=== PATIENT | female | born 2005 | race Caucasian/White ===

== ENCOUNTER 2024-11-03 12:05 | Emergency (ER) | payer OTHER, SELFPAY ==
[2024-11-03 12:24] VITALS: BP 110/88; PULSE 102; RESP 16; TEMP 37.1; O2SAT 99
--- NOTE | 2024-11-03 12:45 | ED.URI ---
HPI - URI/Sore Throat General Chief Complaint: Upper Respiratory Infection Stated Complaint: SORE THROAT/FEVER/COUGH/NAUSEA/TIRED Source: patient and RN notes reviewed Mode of arrival: ambulatory Limitations: no limitations History of Present Illness HPI Narrative: [age] Year old female presented for complaint of sore throat, headache, fatigue, body aches, sinus pressure/congestion, cough, fever/chills. onset 2 days.Denies sob, wheezing, n/v/d. MD elicited complaint: cough Related Data Home Medications ?Medication ?Instructions ?Recorded ?Confirmed ?Last Taken ?Type norgestimate 0.18 mg/0.215 mg/0.25 tablet 11/03/24 Unknown History mg-ethinyl estradiol 25 mcg tablet ([facility]) paroxetine HCl 10 mg tablet mg PO 11/03/24 Unknown History Allergies Allergy/AdvReac Type Severity Reaction Status Date / Time No Known Allergies Allergy Verified 11/03/24 12:22 Review of Systems Review of Systems: CONSTITUTIONAL: Endorses malaise, chills, sweats, fever EYES: Denies visual changes, redness, or discharge ENT: Reports rhinorrhea, congestion, sore throat CARDIOVASCULAR: Denies chest pain, palpitations, edema RESPIRATORY: Reports cough, post nasal drainage. Denies dyspnea GASTROINTESTINAL: Denies abdominal pain, nausea, vomiting, diarrhea SKIN: Denies rash or itching MUSCULOSKELETAL: Endorses myalgia Exam Narrative: GENERAL: well-appearing, nontoxic no acute distress. EYES: PERRLA, conjunctivae clear ENT: Mucous membranes moist. TM pearly jarquin with dull light reflex bilaterally; no tragal tenderness. Oropharynx erythematous without lesions or exudate, no drooling, no hoarseness, no trismus, uvula midline. No tripod positioning, muffled voice, soft palate or pharyngeal wall bulging NECK: Supple. No lymphadenopathy CHEST: Clear to auscultation, breath sounds equal. No wheezing, rhonchi, rales, or stridor. No respiratory distress, speaks in full sentences. HEART: Regular rate and rhythm. SKIN: Warm, dry, no rash. NEURO: Alert and oriented x3. PSYCH: Normal mood and affect Course Course Emergency Course: Patient is aware of diagnosis, understands and agrees to treatment plan. Anticipatory guidance given. Patient agrees to follow-up as directed and is aware of reasons to seek care at the emergency department. Portions of this record may have been created with voice recognition software Level of Care: Express Care Visit Vital Signs Vital signs: Vital Signs Temperature 98.7 F 11/03/24 12:24 Pulse Rate 102 H 11/03/24 12:24 Respiratory Rate 16 11/03/24 12:24 Blood Pressure 110/88 11/03/24 12:24 Pulse Oximetry 99 11/03/24 12:24 Temperature 98.7 F 11/03/24 12:24 Pulse Rate 102 H 11/03/24 12:24 Respiratory Rate 16 11/03/24 12:24 Blood Pressure 110/88 11/03/24 12:24 Pulse Oximetry 99 11/03/24 12:24 reviewed MDM - URI/Sore Throat MDM Narrative Medical decision making narrative: POS covid. Discussed physical exam findings. Advised supportive measures and signs/symptoms to go to the ER. Pt is appropriate for outpt treatment and f/u. Differential Diagnosis Differential diagnosis: Likely upper respiratory infection, sinusitis and viral infection Discharge Plan Discharge Clinical Impression: COVID-19 Patient Disposition: Home, Self-Care Condition: Stable Instructions: COVID-19 (Coronavirus Disease 2019) (ED) Additional Instructions: Your rapid COVID test was positive today. The following updated recommendations have been made by the CDC and local Health Departments, regarding COVID-19: - When people get sick with a respiratory virus, they stay home and away from others. - Return to normal activities when, for at least 24 hours, symptoms are improving overall, and if a fever was present, it has been gone without use of a fever-reducing medication. - Once people resume normal activities, they are encouraged to take additional prevention strategies for the next 5 days to curb disease spread, such as taking more steps for suede cleaner air, enhancing hygiene practices, wearing a well-fitting mask, keeping a distance from others, and/or getting tested for respiratory viruses. - Enhanced precautions are especially important to protect those most at risk for severe illness, including those over 65 and people with weakened immune systems. Rest, stay hydrated. Tylenol and ibuprofen every 8 hours as needed Flonase/nasal spray, Zyrtec, cough syrup cold/flu medications for symptoms as needed Follow up with your primary care provider, call to schedule an appointment. Go to the ER for worsening symptoms or concerns. Patient Language: Bel[place]ian Prescriptions: No Action paroxetine HCl 10 mg tablet PO norgestimate-ethinyl estradiol [[facility]] 0.18/0.215/0.25 mg-25 mcg tablet Follow-up/Referrals: Get,Maribel [Other] Stand Alone Forms: Work/School Release IP Time of Disposition: 12:51
[2024-11-03 12:50] LABS: EDCOVIDSCREEN Positive (Negative); EDINFLUASCREEN Negative (Negative); EDINFLUBSCREEN Negative (Negative); EDSTREPNEGPOS1 Negative (Negative)
== END 2024-11-03 12:53 | disposition home or self-care (01) ==
PROVIDERS: Emergency Provider Nurse Practitioner Family
DX: U07.1 COVID-19 (principal)
CPT/HCPCS: 87081; 87426; 87804; 87880; 99203; G0463

== ENCOUNTER 2025-02-05 13:20 | Emergency (ER) | payer OTHER, SELFPAY ==
--- NOTE | ~2025-02-05 | XR_ITS ---
Right wrist Technique: PA, oblique, lateral, and ulnar deviation views were obtained. Clinical History: Pain Findings: No acute fracture or dislocation is seen. Osseous alignment is anatomic. Joint spaces are p reserved. Soft tissues are unremarkable. Impression: Unremarkable right wrist radiographs. Reviewed, dictated and finalized at location . Impression: Unremarkable right wrist radiographs.
[2025-02-05 13:27] VITALS: BP 112/80; PULSE 71; RESP 18; TEMP 36.9; O2SAT 99
--- NOTE | 2025-02-05 13:40 | ED_ITS ---
HPI - Extremity Injury (Upper) General Chief Complaint: Extremity Injury, Upper Stated Complaint: Wrist Pain Time Seen by Provider: 02/05/25 13:30 Source: patient and RN notes reviewed Mode of arrival: ambulatory Limitations: no limitations History of Present Illness HPI narrative: Patient presents today complaining of right wrist pain x3 weeks that has been worsening since onset. Denies any known injury, trauma, numbness or tingling. Pain increases with movement. Currently rates her pain 3/10 and has tried no [id number] interventions prior to arrival. States she works at [employer] and does have some heavy lifting, but denies any specific injuries Related Data Home Medications ?Medication ?Instructions ?Recorded ?Confirmed ?Last Taken ?Type norgestimate 0.18 mg/0.215mg/0.25 tablet 11/03/24 Unknown History mg-ethinyl estradiol 0.025 mg tablet ([facility]) paroxetine HCl 10 mg tablet mg PO 11/03/24 Unknown History Allergies Allergy/AdvReac Type Severity Reaction Status Date / Time No Known Allergies Allergy Verified 11/03/24 12:22 Review of Systems Review of Systems: CONSTITUTIONAL: Denies body aches, fever, chills, or sweats. EYES: Denies visual changes, redness, or discharge. ENT: Denies rhinorrhea, congestion, sore throat, or otalgia. CARDIOVASCULAR: Denies chest pain, palpitations, or edema. RESPIRATORY: Denies cough or dyspnea. GASTROINTESTINAL: Denies abdominal pain, nausea, vomiting, or diarrhea. GENITOURINARY: Denies dysuria or hematuria. SKIN: Denies rash, itching, or wounds. MUSCULOSKELETAL: Right wrist injury NEUROLOGIC: Denies headache, numbness, tingling, or weakness. PSYCH: Denies depression or anxiety. PMFSH Comments At time of signature, I have reviewed and agree with nursing past medical, surgical, social and family history unless otherwise noted. Please see nursing chart for further information. There is no relevant family history pertinent to the presenting complaint Exam Narrative: GENERAL: Well-appearing, well-nourished, and in no acute distress. HEAD: Normocephalic, atraumatic. EYES: EOMI. No redness or drainage. Conjunctivae normal. ENT: Mucous membranes pink and moist. NECK: Normal AROM. CHEST: No respiratory distress. EXTREMITIES: Right wrist: Mild tenderness to the distal ulna area with scant edema. No tenderness to the remainder of the wrist or hand. No ecchymosis, erythema, deformity noted. No snuffbox tenderness. Distal sensation intact. Capillary refill normal. Radial pulse normal. Full passive range of motion noted without noted increased pain. SKIN: Warm, dry, no rash. Capillary refill normal. Normal skin turgor. NEURO: No focal deficits. Alert and oriented x3. Gait steady. PSYCH: Normal affect. No signs of depression or anxiety. Course Course Level of Care: Express Care Visit Vital Signs Vital signs: Vital Signs Temperature 98.5 F 02/05/25 13:27 Pulse Rate 71 02/05/25 13:27 Respiratory Rate 18 02/05/25 13:27 Blood Pressure 112/80 02/05/25 13:27 Pulse Oximetry 99 02/05/25 13:27 Temperature 98.5 F 02/05/25 13:27 Pulse Rate 71 02/05/25 13:27 Respiratory Rate 18 02/05/25 13:27 Blood Pressure 112/80 02/05/25 13:27 Pulse Oximetry 99 02/05/25 13:27 Reviewed MDM - Extremity Injury (Upper) MDM Narrative Medical decision making narrative: X-ray is negative. Symptoms are likely due to overuse injury. Will start patient on Medrol Dosepak. Discussed immobilization with [id number] splint as well as NSAIDs. Also recommend following up in 1-2 weeks if symptoms do not improve. Patient agrees with plan. Anticipatory guidance given. Differential Diagnosis Differential diagnosis: Likely sprain and strain of wrist, fracture of wrist and other (Tendinitis, carpal tunnel syndrome) Imaging Data Radiologist's impression: ITS Impressions Wrist X-Ray 02/05/25 14:29 Impression: Unremarkable right wrist radiographs. Critical Care Time Critical Care Time Critical Care Time: No Discharge Plan Discharge Clinical Impression: Right wrist tendinitis Patient Disposition: Home Condition: Stable Instructions: Tendinitis (ED) Additional Instructions: Your wrist x-ray is negative. Please take the Medrol Dosepak as directed. You may also continue Tylenol, ibuprofen if needed. Rest and elevate with ice. Follow-up with your PCP or hand/wrist specialist in 1-2 weeks if symptoms persist. Patient Language: [place]ian Prescriptions: New methylprednisolone [Medrol (Yossi)] 4 mg tablets,dose pack See Rx Instructions .ROUTE .COMPLEX Qty: 21 0RF Rx Instructions: orally per package directions No Action paroxetine HCl 10 mg tablet PO norgestimate-ethinyl estradiol [[facility]] 0.18/0.215/0.25 mg-25 mcg tablet Follow-up/Referrals: Maranda Jonas MD [Physician] - PHYSICIAN,[facility] [Primary Care Provider] - Time of Disposition: 14:56
== END 2025-02-05 14:58 | disposition home or self-care (01) ==
PROVIDERS: Emergency Provider Nurse Practitioner
DX: M67.833 Other specified disorders of tendon, right wrist (principal)
CPT/HCPCS: 73110; 99213; G0463